=== PATIENT | female | born 2000 | race Caucasian/White ===

== ENCOUNTER 2025-04-23 12:29 | Emergency (ER) | payer MEDICAID ==
[~2025-04-23] VITALS: Ht 152.4 cm; Wt 82.0 kg
[2025-04-23 12:33] VITALS: PULSE 97; RESP 16; O2SAT 98
[2025-04-23 12:39] VITALS: BP 117/75; O2SAT 99
[2025-04-23 13:13] LABS: HEMATOCRIT. 36.3 % (36.0-48.0); HEMOGLOBIN. 11.7 g/dL (12.0-16.0); MEAN PLATELET VOLUME 9.8 fl (7.4-10.4); PLATELET 307 x1000/uL (130-400); RED BLOOD CELL COUNT 4.99 mill/uL (4.2-5.4); RED CELL DISTRIBUTION WIDTH 20.2 % (11.6-14.6)
[2025-04-23 13:17] LABS: CLARITY URINE TURBID (CLEAR); COLOR URINE YELLOW (YELLOW); GLUCOSE URINE NEGATIVE (NEGATIVE); KETONES URINE NEGATIVE (NEGATIVE); LEUKOCYTE ESTERASE URINE 1+ (NEGATIVE); NITRITE URINE NEGATIVE (NEGATIVE); OCCULT BLOOD URINE NEGATIVE (NEGATIVE); PH URINE 8.5 (4.5-8.0); PROTEIN URINE TRACE (NEGATIVE); SPECIFIC GRAVITY URINE 1.020 (1.005-1.030); UROBILINOGEN URINE 1.0 E.U./dL (0.2-1.0)
[2025-04-23 13:34] LABS: CREATININE 0.5 mg/dL (0.6-1.0); UREA NITROGEN BLOOD 11 mg/dL (9-23)
[2025-04-23 13:39] LABS: AMORPHOUS SEDIMENT URINE 4+ /lpf; BACTERIA URINE 1+; RBC URINE 0-2 /hpf (0-2); SQUAMOUS EPITHELIAL CELL URINE 2+ /lpf (RARE/1+); YEAST URINE NONE SEEN
[2025-04-23 13:44] LABS: BAND% 8.0 % (1.0-6.0); EOSINOPHILS % MANUAL 18.0 % (0.0-5.0); LYMPHOCYTES % MANUAL 29.0 % (20.0-60.0); MONOCYTES % MANUAL 4.0 % (2.0-8.0); NEUTROPHILS % MANUAL 41.0 % (45.0-75.0)
[2025-04-23 13:46] LABS: PLATELET ESTIMATE NORMAL
[2025-04-23 15:01] LABS: ASPARTATE AMINOTRANSFERASE 20 IU/L (<34); BILIRUBIN DIRECT < 0.1 mg/dL (<=3.0); BILIRUBIN TOTAL 0.3 mg/dL (0.1-1.0); PROTEIN TOTAL 7.3 g/dL (6.0-8.3)
[2025-04-23 15:24] LABS: HCG SCREEN NEGATIVE
[2025-04-23] MEDS ORDERED: DOXY100T2 MT (16:19)
[2025-04-23] MEDS ORDERED: IBUP-1455 MT (16:19)
[2025-04-24] MEDS ORDERED: CEPH500T MT (12:07)
== END 2025-04-23 15:56 | disposition left against medical advice (07) ==
LOC: ER 12:29
DX: K80.20 Calculus of gallbladder without cholecystitis without obstruction (principal); N39.0 Urinary tract infection, site not specified; D64.9 Anemia, unspecified; Z98.890 Other specified postprocedural states; Z90.49 Acquired absence of other specified parts of digestive tract
CPT/HCPCS: 36415; 76705; 80048; 80076; 81003; 81025; 84703; 85025; 99284

== ENCOUNTER 2025-04-24 10:32 | Emergency (ER) | payer MEDICAID ==
[~2025-04-24] VITALS: Ht 160 cm; Wt 86.0 kg
[~2025-04-24 10:32] MED LIST: DOXY100T2 MT; IBUP-1455 MT
[2025-04-24 10:44] VITALS: O2SAT 100
[2025-04-24 11:05] LABS: CLARITY URINE TURBID (CLEAR); COLOR URINE YELLOW (YELLOW); GLUCOSE URINE NEGATIVE (NEGATIVE); KETONES URINE TRACE (NEGATIVE); LEUKOCYTE ESTERASE URINE 2+ (NEGATIVE); NITRITE URINE NEGATIVE (NEGATIVE); OCCULT BLOOD URINE TRACE (NEGATIVE); PH URINE 5.5 (4.5-8.0); PROTEIN URINE 1+ (NEGATIVE); SPECIFIC GRAVITY URINE 1.026 (1.005-1.030); UROBILINOGEN URINE 1.0 E.U./dL (0.2-1.0)
[2025-04-24 11:10] LABS: HEMATOCRIT. 34.8 % (36.0-48.0); HEMOGLOBIN. 11.3 g/dL (12.0-16.0); MEAN PLATELET VOLUME 9.8 fl (7.4-10.4); PLATELET 303 x1000/uL (130-400); RED BLOOD CELL COUNT 4.78 mill/uL (4.2-5.4); RED CELL DISTRIBUTION WIDTH 20.1 % (11.6-14.6)
[2025-04-24 11:13] LABS: SQUAMOUS EPITHELIAL CELL URINE 3+ /lpf (RARE/1+); WBC URINE 25-50 /hpf (0-2)
[2025-04-24 11:15] LABS: BACTERIA URINE 4+; RBC URINE 0-2 /hpf (0-2)
[2025-04-24 11:24] LABS: HCG SCREEN NEGATIVE
[2025-04-24 11:26] LABS: CREATININE 0.5 mg/dL (0.6-1.0)
[2025-04-24 11:27] LABS: UREA NITROGEN BLOOD 9 mg/dL (9-23)
[2025-04-24 11:28] LABS: ASPARTATE AMINOTRANSFERASE 15 IU/L (<34)
[2025-04-24 11:29] LABS: BILIRUBIN DIRECT < 0.1 mg/dL (<=3.0); BILIRUBIN TOTAL 0.3 mg/dL (0.1-1.0); PROTEIN TOTAL 7.1 g/dL (6.0-8.3)
[2025-04-24 11:54] LABS: EOSINOPHILS % MANUAL 33.0 % (0.0-5.0); LYMPHOCYTES % MANUAL 22.0 % (20.0-60.0); MONOCYTES % MANUAL 6.0 % (2.0-8.0); NEUTROPHILS % MANUAL 39.0 % (45.0-75.0)
[2025-04-24 11:57] LABS: PLATELET ESTIMATE NORMAL
[2025-04-24] MEDS ORDERED: CEPH500T MT (12:07)
[2025-04-24] MEDS ORDERED: CEFTRIAXONE SODIUM 1G VIAL IM NR (12:15)
[2025-04-24 12:32] VITALS: BP 118/75; PULSE 74; RESP 18; TEMP 37.1; O2SAT 99
== END 2025-04-24 12:36 | disposition home or self-care (01) ==
LOC: ER 10:39
DX: N39.0 Urinary tract infection, site not specified (principal); K80.10 Calculus of gallbladder with chronic cholecystitis without obstruction; D72.10 Eosinophilia, unspecified; Z90.49 Acquired absence of other specified parts of digestive tract
CPT/HCPCS: 80076; 80048; 81003; 84703; 83690; 85025; 36415; 99283; J0696; Z7610